=== PATIENT | female | born 1945 | race Caucasian/White ===

== ENCOUNTER 2018-12-20 13:02 | Inpatient (IN) | payer OTHER, MEDICAID ==
[~2018-12-20] VITALS: Ht 152.4 cm; Wt 72.0 kg
[2018-12-20 13:10] VITALS: BP 89/47
[2018-12-20] MEDS ORDERED: CALCIUM 500 +1 EAC5 PO (13:19)
[2018-12-20] MEDS ORDERED: LIPITOR40 MG PO (13:19)
[2018-12-20] MEDS ORDERED: ASPIR 8181 MG PO (13:19)
[2018-12-20] MEDS ORDERED: LANTUS SUBQ (13:20)
[2018-12-20] MEDS ORDERED: HUMALOG100 UNIT/1 SUBQ (13:21)
[2018-12-20] MEDS ORDERED: LISINOPRIL20 MG PO (13:21)
[2018-12-20] MEDS ORDERED: TOPROL XL25 MG PO (13:21)
[2018-12-20] MEDS ORDERED: COUMADIN 3 MG TA3 M1 PO (13:22)
[2018-12-20 13:27] LABS: BE -1.7 mmol/L (-2 to +3); PCO2 35.9 mmHg (35.0-45.0); PO2 78.2 mmHg (75.0-100.0); pH 7.412 (7.340-7.450)
[2018-12-20 14:31] LABS: URINE BILIRUBIN NEGATIVE (Negative); URINE BLOOD TRACE (Negative); URINE CLARITY CLEAR; URINE COLOR YELLOW; URINE GLUCOSE-RANDOM 3+ (Negative); URINE KETONES TRACE (Negative); URINE LEUKOCYTES-REFLEX NEGATIVE (Negative); URINE PROTEIN TRACE (Negative); URINE SPECIFIC GRAVITY >= 1.030 (1.005-1.030); URINE UROBILINOGEN 0.2 E.U./dl (0.2-1.0)
[2018-12-20 14:54] LABS: URINE NITRITE-REFLEX POSITIVE (Negative)
--- NOTE | 2018-12-20 14:57 | EKG ---
[place] [address] ELECTROCARDIOGRAM REPORT Name: SONIA JASON Room: [facility]#: [id number] Admission: 12/20/18 Attend Phys: Discharge: Date of : 49 Report #: [id number] THIS REPORT FOR: //name// [facility] ED Test Date: 2018-12-20 Test Time: 13:53:32 Pat Name: SONIA JASON Department: Room: Gender: F Epoxy Specialist: LAISHA : 1945 Requested By: Laura Hancock Order Number: [id number] MD: Justin Chi Measurements Intervals [place] Rate: 74 P: 23 MT: 146 QRS: 16 QRSD: 92 T: 40 QT: 424 QTc: 471 Interpretive Statements Sinus rhythm Low voltage, precordial leads No previous ECG available for comparison Electronically Signed On 12-20-2018 14:57:02 CDT by Justin Chi [email or web address] <ELECTRONICALLY SIGNED> By: Justin Chi MD, [facility] 12/20/18 1457 1353 1353 Justin Chi MD, FACC /EPI
[2018-12-20 14:58] LABS: BACTERIA-REFLEX 1-9 Few /HPF (None Seen); CRYSTALS None Seen /LPF (None Seen); FINE GRANULAR CASTS 0-3 Few /LPF (None Seen); HYALINE CASTS 0-3 Few /LPF (None Seen); SQUAMOUS 0-3 Few /LPF (0-3); URINE RBC 0-2 Rare /HPF (0-2); URINE WBC-REFLEX 6-15 Few /HPF (0-5)
[2018-12-20 15:17] LABS: HEMATOCRIT 29.4 % (37.0-47.0); HEMOGLOBIN 9.5 gm/dL (12.0-15.0); MCH 28.3 pg (26.0-34.0); MCHC 32.3 g/dL (28.0-37.0); MCV 87.4 fL (80.0-100.0); NUCLEATED RBCS 0 /100WBC; PLATELET COUNT* 265 thou/uL (150-400); RBC 3.37 mil/uL (4.20-5.00); RDW-CV 14.4 % (10.5-14.5); WBC 16.7 thou/uL (4.0-11.0)
[2018-12-20 15:28] LABS: ANION GAP 9 mmol/L (7-16); BUN 24 mg/dL (7-18); CHLORIDE 107 mmol/L (98-107); CO2 26 mmol/L (21-32); CREATININE 0.8 mg/dL (0.6-1.3); GLUCOSE 357 mg/dL (70-99); POTASSIUM 3.8 mmol/L (3.5-5.1); SODIUM 142 mmol/L (136-145)
[2018-12-20 15:29] LABS: INR 5.5
[2018-12-20 15:37] LABS: ABSOLUTE LYMPHOCYTES 1.7 thou/uL (0.8-5.3); ABSOLUTE MONOCYTES 0.2 thou/uL (0.0-1.2); ABSOLUTE NEUTROPHILS 14.9 thou/uL (1.6-8.1); PLATELET ESTIMATE ADEQUATE
[2018-12-20 15:38] LABS: ALBUMIN 2.3 g/dL (3.4-5.0); ALKALINE PHOSPHATASE 71 U/L (46-116); MAGNESIUM 1.2 mg/dL (1.8-2.4); NT-PRO BRAIN NAT PEPTIDE 253 pg/mL (<300); SGOT 29 U/L (15-37); SGPT 38 U/L (30-65); TOTAL BILIRUBIN 0.6 mg/dL (<0.1-1.0); TOTAL PROTEIN 4.7 g/dL (6.4-8.2); TROPONIN-I LEVEL <0.06 ng/mL (<0.06)
[2018-12-20 17:59] LABS: BE -13.2 mmol/L (-2 to +3); PCO2 26.7 mmHg (35.0-45.0)
[2018-12-20 18:03] LABS: PO2 > 488.8 mmHg (75.0-100.0); pH 7.272 (7.340-7.450)
[2018-12-20 18:30] VITALS: BP 106/56
[2018-12-20 18:53] VITALS: BP 123/74
[2018-12-20 23:35] LABS: HEMOGLOBIN 10.1 gm/dL (12.0-15.0); MCHC 33.6 g/dL (28.0-37.0); MCV 89.1 fL (80.0-100.0); MPV 9.4 fl. (7.2-11.1); RBC 3.37 mil/uL (4.20-5.00); RDW-CV 14.6 % (10.5-14.5); WBC 21.4 thou/uL (4.0-11.0)
[2018-12-21] VITALS (172 sets, daily range): BP systolic 66–196; BP diastolic 31–83
[2018-12-21 02:49] LABS: PROTIME 14.7 Seconds (9.20-11.50)
[2018-12-21 02:55] LABS: APTT 26.1 Seconds (25.0-31.3); INR 1.4
[2018-12-21 05:30] LABS: BE -3.3 mmol/L (-2 to +3); PCO2 21.6 mmHg (35.0-45.0); pH 7.545 (7.340-7.450)
[2018-12-21 05:58] LABS: CALCIUM 7.7 mg/dL (8.5-10.1); CREATININE 1.2 mg/dL (0.6-1.3); POTASSIUM 3.5 mmol/L (3.5-5.1)
[2018-12-21 07:38] LABS: BE -3.4 mmol/L (-2 to +3); PCO2 26.2 mmHg (35.0-45.0); pH 7.487 (7.340-7.450)
[2018-12-21 07:40] LABS: PO2 170.8 mmHg (75.0-100.0)
[2018-12-21 09:52] LABS: MCH 29.4 pg (26.0-34.0); MCHC 33.1 g/dL (28.0-37.0); MCV 88.9 fL (80.0-100.0); MPV 9.1 fl. (7.2-11.1); RBC 2.03 mil/uL (4.20-5.00); RDW-CV 14.4 % (10.5-14.5); WBC 15.3 thou/uL (4.0-11.0)
[2018-12-21 10:05] LABS: HEMATOCRIT 18.1 % (37.0-47.0)
[2018-12-21 10:34] LABS: INR 1.3; PROTIME 13.4 Seconds (9.20-11.50)
[2018-12-21 14:27] LABS: HEMATOCRIT 29.2 % (37.0-47.0)
[2018-12-21 14:28] LABS: HEMOGLOBIN 9.6 gm/dL (12.0-15.0)
[2018-12-21 16:24] LABS: HEMATOCRIT 28.3 % (37.0-47.0); HEMOGLOBIN 9.3 gm/dL (12.0-15.0)
[2018-12-21 16:35] LABS: MAGNESIUM 2.8 mg/dL (1.8-2.4)
[2018-12-21 16:37] LABS: POTASSIUM 4.5 mmol/L (3.5-5.1)
[2018-12-21 22:34] LABS: HEMATOCRIT 26.1 % (37.0-47.0); HEMOGLOBIN 8.8 gm/dL (12.0-15.0); MCH 30.1 pg (26.0-34.0); MCHC 33.9 g/dL (28.0-37.0); MCV 88.8 fL (80.0-100.0); MPV 9.5 fl. (7.2-11.1); RBC 2.93 mil/uL (4.20-5.00); RDW-CV 14.6 % (10.5-14.5)
[2018-12-22] VITALS (80 sets, daily range): BP systolic 90–133; BP diastolic 29–73
[2018-12-22 05:14] LABS: CALCIUM 7.8 mg/dL (8.5-10.1); CREATININE 1.1 mg/dL (0.6-1.3); MAGNESIUM 2.1 mg/dL (1.8-2.4); POTASSIUM 4.1 mmol/L (3.5-5.1)
[2018-12-22 05:18] LABS: INR 1.2; PROTIME 12.7 Seconds (9.20-11.50)
[2018-12-22 06:08] LABS: HEMOGLOBIN 7.1 gm/dL (12.0-15.0); MCH 29.8 pg (26.0-34.0); MCHC 33.6 g/dL (28.0-37.0); MCV 88.6 fL (80.0-100.0); MPV 8.8 fl. (7.2-11.1); RBC 2.37 mil/uL (4.20-5.00); RDW-CV 14.3 % (10.5-14.5); WBC 21.2 thou/uL (4.0-11.0)
[2018-12-22 08:14] LABS: BE -0.8 mmol/L (-2 to +3); PO2 70.6 mmHg (75.0-100.0)
[2018-12-22 11:00] LABS: TROPONIN-I LEVEL 0.13 ng/mL (<0.06)
[2018-12-22 13:02] LABS: URINE BILIRUBIN NEGATIVE (Negative); URINE BLOOD NEGATIVE (Negative); URINE CLARITY CLEAR; URINE COLOR YELLOW; URINE GLUCOSE-RANDOM TRACE (Negative); URINE KETONES NEGATIVE (Negative); URINE LEUKOCYTES NEGATIVE (Negative); URINE NITRITE NEGATIVE (Negative); URINE PROTEIN NEGATIVE (Negative); URINE SPECIFIC GRAVITY >= 1.030 (1.005-1.030); URINE UROBILINOGEN 0.2 E.U./dl (0.2-1.0)
[2018-12-22 13:15] LABS: HEMATOCRIT 28.8 % (37.0-47.0); HEMOGLOBIN 9.8 gm/dL (12.0-15.0)
[2018-12-22 13:22] LABS: HEMATOCRIT 28.8 % (37.0-47.0); MCH 30.1 pg (26.0-34.0); MCHC 33.9 g/dL (28.0-37.0); MCV 88.7 fL (80.0-100.0); MPV 8.9 fl. (7.2-11.1); RBC 3.25 mil/uL (4.20-5.00); RDW-CV 14.8 % (10.5-14.5); WBC 15.9 thou/uL (4.0-11.0)
[2018-12-22 13:24] LABS: HEMOGLOBIN 9.8 gm/dL (12.0-15.0)
[2018-12-22 18:04] LABS: HEMATOCRIT 28.2 % (37.0-47.0); HEMOGLOBIN 9.5 gm/dL (12.0-15.0)
--- NOTE | 2018-12-22 20:41 | CON ---
[address] [address] CONSULTATION Name: ERENSONIA J Room: [address] IN .R.#: [id number] Admission: 12/20/18 Attend Phys: Mirna Chowdary Discharge: Date of : 49 Report #: [id number] THIS REPORT FOR: //name// CC: CARLY physician/PCP Reginald Trinh CARDIOLOGY CONSULTATION HISTORY OF PRESENT ILLNESS: I was asked by Dr. Trinh to see this 73-year-old white female in cardiology consultation for evaluation and treatment of atrial fibrillation with a rapid ventricular response. This lady was admitted on 12/20/2018 with an acute GI bleed. She had a severe GI bleed and was hypotensive and actually had syncope with it. Apparently, she has a bleeding duodenal ulcer. She was intubated in the ER the day of the admission to protect her airway apparently. She does have a history of COPD also. She does, in fact, have a past history of atrial fibrillation as well. She was in sinus rhythm until this morning. Of note, is that they have had difficulty managing this lady's blood pressure. She has remained hypotensive since her admission. She has required Levophed. She also has required DuoNeb that she has been getting every 4 hours. This morning, she became hypotensive again. Last night, her hemoglobin was 8.8 at 10:00 last night. This morning with this event, her hemoglobin did drop to 7.1. The presumption is that she has bled again. She went into atrial fibrillation with a rapid ventricular response earlier this morning, initially it was thought to be paroxysmal supraventricular tachycardia, because it was extremely rapid and fairly regular, although on close examination, the rhythm is in fact not completely regular. Her initial heart rate was 190. She was given adenosine and metoprolol and the heart rate slowed and has remained a bit slower, but she was running up to 150 at times and it became clear it was atrial fibrillation. She is on 12 mcg of Levophed and cannot get diltiazem or a beta oksana for this rhythm, so she has gotten a couple of doses of digoxin. If she fails to respond with a lower heart rate with digoxin, then we will have to give her amiodarone. She was given a bolus of fluids. She is less hypotensive now, she is going to get blood. She is currently stable, but remains critically ill. PAST MEDICAL HISTORY: Also includes history of CVA in 2005, I believe it was on the right side of her head. She has history of essential hypertension, diabetes mellitus and hypercholesterolemia and was on medication for those. She has insulin-dependent diabetes mellitus. She cannot give a history, she is intubated and is sedated and on ventilator. PAST MEDICAL HISTORY: As described above. ALLERGIES: She is allergic to METFORMIN AND PENICILLIN. REVIEW OF SYSTEMS: [place] [address] CONSULTATION Name: SONIA JASON Room: [address] IN [facility]#: [id number] Admission: 12/20/18 Attend Phys: Mirna Chowdary Discharge: Date of : 49 Report #: [id number] SOCIAL HISTORY: She cannot give social history or family history. Apparently, she does not smoke or drink or use illegal drugs. PHYSICAL EXAMINATION: GENERAL: She presents as a well-developed, well-nourished white female in no acute distress. She is intubated, sedated and on the ventilator. She is unresponsive. VITAL SIGNS: Her pulse is currently 118, her systolic pressure is 100, respirations are 16, and she is afebrile. Her most recent temperature was 98.1. HEENT: Her head is atraumatic. Eyes clear. NECK: Supple. There is no jugular venous distention or hepatojugular reflux. Thyroid is not enlarged. There is no adenopathy. SKIN: Warm and dry. Mucous membranes are moist. LUNGS: Clear to auscultation and percussion. HEART: Revealed normal first and second heart sound. There is no S4, no S3, no murmurs, rubs, thrills, heaves. The rhythm is irregularly irregular, rate is approximately 120. PMI is not displaced. ABDOMEN: Soft, flat, nontender, no palpable masses, no organomegaly. EXTREMITIES: Reveal no cyanosis, clubbing or edema. NEUROLOGIC: The patient was unresponsive and did not move her extremities. She is intubated and sedated. DIAGNOSTIC STUDIES: Her most recent EKG from this morning at 5:20 a.m. shows atrial fibrillation. There is a possible old anteroseptal infarct. Her heart rate was 123 at that time. Chest x-ray from yesterday showed clear lungs. I do not think she has had one yet today. On yesterday's x-ray, the cardiac silhouette was normal. ET tube was in normal position. IMPRESSION: 1. Atrial fibrillation with a rapid ventricular response. 2. Hypovolemic shock. 3. Gastrointestinal bleed. 4. Chronic obstructive pulmonary disease with acute respiratory failure. 5. Anemia. 6. History of essential hypertension. 7. Insulin-dependent diabetes mellitus. 8. Hypercholesterolemia. 9. History of cerebrovascular accident. RECOMMENDATION: She has already gotten a couple of doses of digoxin. If her heart rate does not begin to slow further, I would start her on amiodarone to slow her and hopefully convert her back to sinus rhythm. She should not be anticoagulated. I would transfuse her. I would notify GI that she is probably having a GI bleed. She has already gotten a bolus of fluids. She may require more fluids. I would discontinue DuoNeb and switch her to Xopenex, as it is less arrhythmogenic. If her blood pressure comes up, I would taper her off the [address] [place] [address] CONSULTATION Name: SONIA JASON Room: [address] ADM IN ..#: [id number] Admission: 12/20/18 Attend Phys: Mirna Chowdary Discharge: Date of : 47 Report #: [id number] Levophed, as it is also arrhythmogenic. I would consider Amos-Synephrine in place of it, if she continues needing pressor support. Amos-Synephrine is not arrhythmogenic. Thank you very much for asking me to the patient. If any questions, please feel free to contact me. <ELECTRONICALLY SIGNED> By: Justin Chi MD, [facility] 12/22/18 2041 0833 [id number]. Vernon Brito MD, FACC /nt
[2018-12-23] VITALS (76 sets, daily range): BP systolic 92–148; BP diastolic 30–63
[2018-12-23 03:56] LABS: HEMOGLOBIN 8.9 gm/dL (12.0-15.0); MCH 29.4 pg (26.0-34.0); MCHC 33.1 g/dL (28.0-37.0); MCV 88.7 fL (80.0-100.0); MPV 8.9 fl. (7.2-11.1); RBC 3.04 mil/uL (4.20-5.00); RDW-CV 14.9 % (10.5-14.5); WBC 15.3 thou/uL (4.0-11.0)
[2018-12-23 04:04] LABS: INR 1.1
--- NOTE | 2018-12-23 09:53 | CON ---
[address] [address] CONSULTATION Name: SONIA JASON Room: [address] ADM IN M.R.#: [id number] Admission: 12/20/18 Attend Phys: Mirna Chowdary Discharge: Date of : 49 Report #: [id number] THIS REPORT FOR: //name// CC: CARLY physician/PCP Reginald Trinh REASON FOR CONSULTATION: Respiratory failure, ventilator management. HISTORY OF PRESENT ILLNESS: Please note the patient is intubated, on sedation during my visit, did not participate in the history; discussed with the nursing staff and reviewed medical record. She is a 73-year-old female patient, who was brought in by EMS. Apparently, she had episodes of vomiting and loss of consciousness while she was in a gas station. EMS reported that she was unconscious, although she gained consciousness en route to the emergency room. Apparently, she did not recall any knowledge about what happened. She has a C-collar in place. She denied abdominal pain, fever, or rash to the admitting physician; however, at one point, she was intubated for airway protection. She had a central line placed and pneumothorax was found. She also ended up with a chest tube placement. She still has gastric tube with some bloody secretions. During my visit, she was on Levophed, although they were going down on it. She was on 2 mcg of Levophed compared to 5 overnight. She is on 6 mg Versed. ALLERGIES: Per the record, PENICILLIN AND METFORMIN. PAST MEDICAL HISTORY: Includes atrial fibrillation, diabetes mellitus, stroke, and hysterectomy. PAST SURGICAL HISTORY: Includes hysterectomy as above. HOME MEDICATIONS: Aspirin, calcium, metoprolol, Coumadin. FAMILY HISTORY: Not obtainable. REVIEW OF SYSTEMS: Not obtainable due to the patient's condition. PHYSICAL EXAMINATION: GENERAL: She is intubated, on sedation, no distress, chest tube in place, ET tube in place. HEENT: Oral cavity, moist mucous membrane; head, normocephalic, atraumatic; slightly pale; pupils reactive to light; external ears look normal; nasal cavity, patent passages. NECK: Full range of movement, nontender. No masses felt, no rebound, no rigidity. CHEST: Air movement heard bilaterally; no crackles, no wheezes; chest tube on the left side with very rare occasional leak. HEART: S1 and S2, no murmur. ABDOMEN: Benign, soft, lax, nontender, [place] [address] CONSULTATION Name: SONIA JASON Room: [address]#: [id number] Admission: 12/20/18 Attend Phys: Mirna Chowdary Discharge: Date of : 49 Report #: [id number] EXTREMITIES: Lower extremity, no edema noted. I did not take the sedation off. SKIN: No rash. LYMPHATICS: No palpable lymph node. NEUROLOGIC: Sedated. LABORATORY DATA: White blood count 16.7, hemoglobin 9.5, and platelets of 265. Her INR was 5.5; however, post hospitalization today is 1.4. ABGs, she had multiple sets of ABGs reviewed. The last ABG this morning, 7.48//170 and that was on 550 of tidal volume, 50% FiO2, and rate of 16. Since then, the volume was adjusted and FiO2 was adjusted. Her creatinine is 1.2, BUN is 27, bicarbonate 20, potassium 3.5, and sodium 144. She had multiple imaging that was reviewed. Initial chest x-ray did not show pneumothorax, but after intubation, the chest x-ray showed the pneumothorax. The chest x-ray this morning, left-sided chest tube was noted and ET tube in good position with clear lungs. IMPRESSION: 1. Acute respiratory failure. 2. Gastrointestinal bleed. 3. Syncopal episode. 4. Pneumothorax, status post chest tube placement. 5. Supratherapeutic INR, on anticoagulation, likely due to atrial fibrillation. 6. Atrial fibrillation. PLAN: I agree with changing sedation to propofol if her blood pressure can tolerate, wean pressor down as tolerated, monitor fluid status, and avoid fluid overload. I would keep the chest tube to -30 suction; likely, we will keep the chest tube until after extubation. Monitor hemoglobin and transfuse as needed. My understanding is she received blood transfusion and fresh frozen plasma, Gastroenterology to evaluate. I will continue the current ventilator setting as suggested above. If cleared by Gastroenterology, we will start weaning trials hopefully tomorrow depending on the progress of the gastrointestinal workup and her hemodynamic status. We will follow up on chest x-ray and arterial blood gases. Critical care time 40 minutes. <ELECTRONICALLY SIGNED> By: Cheryl Ribeiro MD 12/23/18 0953 0815 0924Cheryl Ribeiro MD /georgiana
[2018-12-23 11:21] LABS: BE 0.1 mmol/L (-2 to +3); PCO2 37.6 mmHg (35.0-45.0); pH 7.429 (7.340-7.450)
--- NOTE | 2018-12-23 13:47 | EKG ---
[place] [address] ELECTROCARDIOGRAM REPORT Name: SONIA JASON Room: [address] ADM IN M.R.#: [id number] Admission: 12/20/18 Attend Phys: Mirna Chowdary Discharge: Date of : 49 Report #: [id number] THIS REPORT FOR: //name// [facility] Test Date: 2018-12-21 Test Time: 04:43:05 Pat Name: SONIA JASON Department: Room: [address] Gender: F Physical Therapy Technician: CAN : 1945 Requested By: Reginald Trinh Order Number: [id number] Derrick MD: Justin Chi Measurements Intervals [place] Rate: 110 P: -7 WI: 147 QRS: 23 QRSD: 83 T: 239 QT: 343 QTc: 465 Interpretive Statements Sinus tachycardia Low voltage, precordial leads Nonspecific repol abnormality, diffuse leads Compared to ECG 12/20/2018 13:53:32 Early repolarization now present Sinus rhythm no longer present Electronically Signed On 12-23-2018 13:46:59 CDT by Justin Chi [email or web address] <ELECTRONICALLY SIGNED> By: Justin Chi MD, FAC 12/23/18 1346 0443 0443 Justin Chi MD, [facility] /EPI
[2018-12-23 13:52] LABS: HEMATOCRIT 24.2 % (37.0-47.0); HEMOGLOBIN 8.4 gm/dL (12.0-15.0)
--- NOTE | 2018-12-23 13:58 | EKG ---
[place] [address] ELECTROCARDIOGRAM REPORT Name: SONIA JASON Room: [address] ADM IN M.R.#: [id number] Admission: 12/20/18 Attend Phys: Mirna Chowdary Discharge: Date of : 49 Report #: [id number] THIS REPORT FOR: //name// [facility] Test Date: 2018-12-22 Test Time: 05:02:41 Pat Name: SONIA JASON Department: Room: [address] Gender: F Administrative Support Specialist: CAN : 1945 Requested By: Reginald Trinh Order Number: [id number] Derrick MD: Justin Chi Measurements Intervals [place] Rate: 190 P: 0 CT: QRS: 0 QRSD: 71 T: 182 QT: 245 QTc: 436 Interpretive Statements Supraventricular tachycardia Low voltage, extremity and precordial leads Repolarization abnormality, prob rate related Electronically Signed On 12-23-2018 13:57:57 CDT by Justin Chi [email or web address] <ELECTRONICALLY SIGNED> By: Justin Chi MD, [facility] 12/23/18 1357 D: [address] 1 Justin Chi MD, FACC /EPI
--- NOTE | 2018-12-23 13:59 | EKG ---
[place] [address] ELECTROCARDIOGRAM REPORT Name: SONIA JASON Room: [address] ADM IN M.R.#: [id number] Admission: 12/20/18 Attend Phys: Mirna Chowdary Discharge: Date of : 49 Report #: [id number] THIS REPORT FOR: //name// [facility] Test Date: 2018-12-22 Test Time: 05:20:49 Pat Name: SONIA JASON Department: Room: [address] Gender: F [employer] Reading Teacher: CAN : 1945 Requested By: Vinicius Brito Order Number: [id number] Derrick MD: Justin Chi Measurements Intervals [place] Rate: 123 P: [place]: QRS: 8 QRSD: 80 T: 113 QT: 318 QTc: 455 Interpretive Statements Atrial fibrillation Anteroseptal infarct, age indeterminate Electronically Signed On 12-23-2018 13:59:23 CDT by Justin Chi [email or web address] <ELECTRONICALLY SIGNED> By: Justin Chi MD, [facility] 12/23/18 1359 0520 0520 Justin Chi MD, FACC /EPI
--- NOTE | 2018-12-23 14:30 | EKG ---
[place] [address] ELECTROCARDIOGRAM REPORT Name: SONIA JASON Room: [address] ADM IN M.R.#: [id number] Admission: 12/20/18 Attend Phys: Mirna Chowdary Discharge: Date of : 49 Report #: [id number] THIS REPORT FOR: //name// [facility] Test Date: 2018-12-22 Test Time: 09:05:26 Pat Name: SONIA JASON Department: Room: [address] Gender: F Applications Developer: [facility] : 1945 Requested By: Dinora Aponte Order Number: [id number] Derrick MD: Justin Chi Measurements Intervals [place] Rate: 121 P: 57 [place]: 144 QRS: 2 QRSD: 73 T: 211 QT: 291 QTc: 413 Interpretive Statements Sinus tachycardia Low voltage, extremity and precordial leads septal infarct, old Borderline repolarization abnormality Electronically Signed On 12-23-2018 14:30:18 CDT by Justin Chi [email or web address] <ELECTRONICALLY SIGNED> By: Justin Chi MD, [facility] 12/23/18 1430 4 4 Justin Chi MD, FACC /EPI
--- NOTE | 2018-12-23 15:38 | CON ---
[address] [address] CONSULTATION Name: ERENSONIA J Room: [address] ADM IN M.R.#: [id number] Admission: 12/20/18 Attend Phys: Mirna Chowdary Discharge: Date of : 49 Report #: [id number] THIS REPORT FOR: //name// CC: CARLY physician/PCP Reginald Trinh DATE OF SERVICE: 12/21/2018 REASON FOR CONSULT: Gastrointestinal bleed. HISTORY OF PRESENT ILLNESS: This is a 73-year-old female who was admitted to hospital last night with hematemesis. The patient apparently was found unconscious at gas station and was brought to the hospital by EMS. Upon hospitalization, the patient was alert, but reported that she was tired. Her hemoglobin was in range of 8, but she was transfused since she was vomiting a lot of blood. Since then, the patient has been intubated and is on pressors. She is maxed out on Levophed of 30. She still is extremely hypotensive and tachycardic with heart rate of 130s. She also has leukocytosis with WBC in range of mid 20s. She initially was on propofol, but she has been off of propofol and is not responsive. She has a NG tube in place, which has some dark blood in it. The patient also is on Coumadin and she was on hypercoagulable state with INR of 5.5 on admission. Since her ER visit, we had ordered to reverse INR with FFP and her INR this morning is 1.3. Post-transfusion, her hemoglobin went up to 10, but this morning had dropped to 6. We also had started her on a Protonix drip since admission. PAST MEDICAL HISTORY: Significant for history of hyperlipidemia, diabetes, hypertension, atrial fibrillation, history of cerebrovascular accident in 2005 and chronic anticoagulation therapy. ALLERGIES: Significant to METFORMIN AND PENICILLIN. SOCIAL HISTORY: Unknown as the patient is nonresponsive. FAMILY HISTORY: Unknown as well. PHYSICAL EXAMINATION: GENERAL: Reveals a 73-year-old female with acute gastrointestinal bleeds, who is intubated, off of sedation, but nonresponsive; tachycardic and hypotensive, on Levophed. VITAL SIGNS: Include blood pressure of 89/41, respirations 21, pulse 128 and temperature is 100.2. LUNGS: Bilateral breath sounds are heard, note the patient is intubated. CARDIOVASCULAR: [place]achycard[place] [address] CONSULTATION Name: SONIA JASON Shruthi Room: [address] IN [facility]#: [id number] Admission: 12/20/18 Attend Phys: Mirna Chowdary Discharge: Date of : 49 Report #: [id number] ABDOMEN: Soft. Bowel sounds are present. There is no rebound or guarding. NEUROLOGIC: The patient is off sedation, but nonresponsive. LABORATORY DATA: Reveal sodium of 144, potassium 3.5, BUN is 27, creatinine 1.2, glucose is 419, AST is 29, ALT 31, alkaline phosphatase 71 and calcium is 7.7. Albumin is 2.3. Lactic acid is 5.2 with troponin of 0.07. INR is 1.3. WBC is 15.3 with hemoglobin of 6.0 and platelets of 171. IMAGING: CT of abdomen and pelvis was obtained on admission. There is a large left pneumothorax noted on presentation and has been addressed with placing a chest tube. There was a large amount of mixed density fluid and some gas in the stomach, which may be consistent with upper gastrointestinal bleed. There was also cholelithiasis and small amount of free fluid in the pelvis. ASSESSMENT AND PLAN: The patient with multiple medical problems who presents with acute gastrointestinal bleed and shock, who is on maximum dose of pressors and intubated. Since her hemoglobin dropped from 10 to 6, we will go ahead and perform upper endoscopy. We continue to monitor H and H and keep hemoglobin between 7 and 8. Meanwhile, we will continue Protonix drip and make further recommendation based on upper endoscopic finding. <ELECTRONICALLY SIGNED> By: Bossman Holloway MD 12/23/18 1538 1203 1840Bossman Holloway MD /nt
--- NOTE | 2018-12-23 16:38 | 2DMMODE ---
[place] [address] 2 D/M-MODE ECHOCARDIOGRAM Name: JASONSONIA J Room: 003-P ADM IN [facility]#: [id number] Admission: 12/20/18 Attend Phys: Reginald Trinh Discharge: Date of : 49 Date of Service: 12/23/18 1638 Report #: [id number] THIS REPORT FOR: //name// APPROVED REPORT Study performed: 12/23/2018 14:17:14 EXAM: Comprehensive 2D, Doppler, and color-flow Echocardiogram Patient Location: In-Patient Room #: 003 Status: routine BSA: 1.83 HR: 77 bpm BP: 112/37 mmHg Rhythm: NSR Other Information Study Quality: Good Indications Atrial Fibrillation 2D Dimensions IVSd: 9.43 (7-11mm) LVOT Diam: 19.40 (18-24mm) LVDd: 38.03 mm PWd: 9.92 (7-11mm) Ascending Ao: 29.78 (22-36mm) LVDs: 20.03 (25-40mm) Aortic Root: 29.86 mm Volumes Left Atrial Volume (Systole) LA ESV Index: 20.00 mL/m2 Aortic Valve AoV Peak Gadiel.: 1.67 m/s AO Peak Gr.: 11.13 mmHg LVOT Max P.36 mmHg AO Mean Gr.: 5.89 mmHg LVOT Mean P.66 mmHg LVOT Max V: 1.16 m/s AO V2 VTI: 28.51 cm LVOT Mean V: 0.75 m/s LYNN (VTI): 2.61 cm2 LVOT V1 VTI: 25.21 cm Mitral Valve E/A Ratio: 1.19 MV Decel. Time: 211.34 ms MV E Max Gadiel.: 0.88 m/[place] [address] 2 D/M-MODE ECHOCARDIOGRAM Name: SONIA JASON Room: [address] IN ..#: [id number] Admission: 12/20/18 Attend Phys: Reginald Trinh Discharge: Date of : 49 Date of Service: 12/23/18 1638 Report #: [id number] MV PHT: 61.29 ms MVA (PHT): 3.59 cm2 TDI E/Lateral E': 8.80 E/Medial E': 11.00 Medial E' Gadiel.: 0.08 m/s Lateral E' Gadiel.: 0.10 m/s Pulmonary Valve PV Peak Gadiel.: 1.09 m/s PV Peak Gr.: 4.76 mmHg Left Ventricle The left ventricle is normal size. There is normal LV segmental wall motion. There is normal left ventricular wall thickness. Left ventricular systolic function is normal. The left ventricular ejection fraction is within the normal range. LVEF is 60-65%. The left ventricular diastolic function is normal. Right Ventricle The right ventricle is normal size. The right ventricular systolic function is normal. Atria The left atrium size is normal. The right atrium size is normal. Aortic Valve Aortic valve leaflets are mildly thickened. No aortic regurgitation is present. There is no aortic valvular stenosis. Mitral Valve There is mitral annular calcification. Trace mitral regurgitation. No evidence of mitral valve stenosis. Tricuspid Valve The tricuspid valve is normal in structure. Trace tricuspid regurgitation. Unable to assess PA pressure. Pulmonic Valve The pulmonary valve is normal in structure. There is no pulmonic valvular regurgitation. Great Vessels The aortic root is normal in size. [place] [address] 2 D/M-MODE ECHOCARDIOGRAM Name: SONIA JASON Room: [address] IN [facility]#: [id number] Admission: 12/20/18 Attend Phys: Reginald Trinh Discharge: Date of : 49 Date of Service: 12/23/18 1638 Report #: [id number] Pericardium There is no pericardial effusion. <Conclusion> LVEF is 60-65%. Aortic valve leaflets are mildly thickened. <ELECTRONICALLY SIGNED> By: Justin Chi MD, [facility] 12/23/18 1638 1638 37 Justin Chi MD, [facility] /INF
--- NOTE | 2018-12-23 16:54 | EKG ---
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
[2018-12-24] VITALS (38 sets, daily range): BP systolic 85–142; BP diastolic 31–55
[2018-12-24 04:56] LABS: HEMATOCRIT 24.8 % (37.0-47.0); HEMOGLOBIN 8.5 gm/dL (12.0-15.0); MCH 30.3 pg (26.0-34.0); MCHC 34.4 g/dL (28.0-37.0); MPV 9.7 fl. (7.2-11.1); RBC 2.81 mil/uL (4.20-5.00); RDW-CV 14.6 % (10.5-14.5); WBC 8.4 thou/uL (4.0-11.0)
[2018-12-24 05:05] LABS: CALCIUM 7.8 mg/dL (8.5-10.1); CREATININE 0.7 mg/dL (0.6-1.3); POTASSIUM 3.4 mmol/L (3.5-5.1)
[2018-12-24 05:07] LABS: PROTIME 10.5 Seconds (9.20-11.50)
--- NOTE | 2018-12-24 11:36 | EKG ---
[place] [address] ELECTROCARDIOGRAM REPORT Name: SONIA JASON Room: [address] ADM IN M.R.#: [id number] Admission: 12/20/18 Attend Phys: Mirna Chowdary Discharge: Date of : 49 Report #: [id number] THIS REPORT FOR: //name// [facility] Test Date: 2018-12-24 Test Time: 08:32:05 Pat Name: SONIA JASON Department: Room: [address] Gender: F Lift Operator: : 1945 Requested By: Vinicius Brito Order Number: [id number] Reading MD: Toni Aiken Measurements Intervals [place] Rate: 82 P: 21 CT: 154 QRS: 35 QRSD: 100 T: 14 QT: 392 QTc: 458 Interpretive Statements Sinus rhythm Low voltage, precordial leads Baseline wander in lead(s) II,III,aVF Compared to ECG 12/23/2018 09:13:03 Prolonged QT interval no longer present Electronically Signed On 12-24-2018 11:36:29 CDT by Toni Aiken [email or web address] <ELECTRONICALLY SIGNED> By: Toni Aiken MD, FAC 12/24/18 1136 [id number] Toni Aiken MD, [facility] /EPI
[2018-12-25] VITALS (30 sets, daily range): BP systolic 91–131; BP diastolic 23–57
[2018-12-25 09:05] LABS: HEMATOCRIT 25.4 % (37.0-47.0); HEMOGLOBIN 8.9 gm/dL (12.0-15.0); MCH 31.3 pg (26.0-34.0); MCV 89.4 fL (80.0-100.0); MPV 9.2 fl. (7.2-11.1); NUCLEATED RBCS 0 /100WBC; PLATELET COUNT* 77 thou/uL (150-400); RBC 2.84 mil/uL (4.20-5.00); RDW-CV 14.3 % (10.5-14.5)
[2018-12-25 09:16] LABS: CALCIUM 8.1 mg/dL (8.5-10.1); CREATININE 0.5 mg/dL (0.6-1.3); POTASSIUM 3.6 mmol/L (3.5-5.1); TOTAL BILIRUBIN 0.7 mg/dL (<0.1-1.0); TOTAL PROTEIN 4.2 g/dL (6.4-8.2)
[2018-12-25 09:27] LABS: ABSOLUTE EOSINOPHILS 0.1 thou/uL (0.0-0.7); ABSOLUTE LYMPHOCYTES 1.6 thou/uL (0.8-5.3); ABSOLUTE MONOCYTES 0.4 thou/uL (0.0-1.2); ABSOLUTE NEUTROPHILS 5.9 thou/uL (1.6-8.1); METAMYELOCYTES 1 %; PLATELET ESTIMATE DECREASED
[2018-12-25 09:28] LABS: HYPOCHROMASIA 1+; POLYCHROMASIA 1+
--- NOTE | 2018-12-25 11:08 | EKG ---
[place] [address] ELECTROCARDIOGRAM REPORT Name: SONIA JASON Room: [address] ADM IN M.R.#: [id number] Admission: 12/20/18 Attend Phys: Mirna Chowdary Discharge: Date of : 49 Report #: [id number] THIS REPORT FOR: //name// 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
[2018-12-26] VITALS: BP 114/45
[2018-12-26 04:03] VITALS: BP 113/47
[2018-12-26 05:47] LABS: PROTIME 10.5 Seconds (9.20-11.50)
--- NOTE | 2018-12-26 11:24 | EKG ---
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
[2018-12-26 11:57] VITALS: BP 113/49
[2018-12-26 15:46] VITALS: BP 118/50
[2018-12-26 20:10] VITALS: BP 129/46
[2018-12-27] VITALS: BP 102/40; BP 103/34
[2018-12-27 04:00] VITALS: BP 104/42
[2018-12-27 12:44] LABS: HEMATOCRIT 27.2 % (37.0-47.0); HEMOGLOBIN 9.2 gm/dL (12.0-15.0)
[2018-12-27 12:46] VITALS: BP 104/37
[2018-12-27 16:06] VITALS: BP 123/52
[2018-12-27 19:05] LABS: HEMATOCRIT 29.2 % (37.0-47.0); HEMOGLOBIN 9.9 gm/dL (12.0-15.0)
[2018-12-27 20:00] VITALS: BP 116/45
[2018-12-28] VITALS: BP 98/40
[2018-12-28 04:00] VITALS: BP 112/42
[2018-12-28 08:00] VITALS: BP 113/48
[2018-12-28 12:00] VITALS: BP 111/40
[2018-12-28 16:00] VITALS: BP 95/32
[2018-12-28 20:00] VITALS: BP 108/41
[2018-12-29] VITALS (7 sets, daily range): BP systolic 91–116; BP diastolic 32–55
[2018-12-30] VITALS: BP 101/39
[2018-12-30 04:30] VITALS: BP 101/42
[2018-12-30 08:00] VITALS: BP 114/42
[2018-12-30 11:00] VITALS: BP 101/35
[2018-12-30 15:00] VITALS: BP 124/48
[2018-12-30 20:00] VITALS: BP 113/43
[2018-12-31] VITALS: BP 113/48
[2018-12-31 04:00] VITALS: BP 110/44
[2018-12-31 08:00] VITALS: BP 142/45
[2018-12-31 11:00] VITALS: BP 142/45
[2018-12-31] MEDS ORDERED: PROTONIX40 M1 PO (11:07)
[2018-12-31] MEDS ORDERED: CARAFATE 1 GM TA1 G1 PO (11:21)
== END 2018-12-31 14:00 | DRG 208 ==
LOC: M.ERS 13:02 → M.ICU 16:11 → M.TBA-ER 16:11 → M.2W 16:11 → M.ICU 17:42 → M.2W 12-25 22:19
PROVIDERS: Internal Medicine; Internal Medicine Critical Care Medicine; Internal Medicine Gastroenterology; Personal Emergency Response Attendant; ADMIT Internal Medicine
PROC: 0BH17EZ Insertion of Endotracheal Airway into Trachea, Via Natural or Artificial Opening (ICD-10-PCS; 2018-12-20)
PROC: 02HV33Z Insertion of Infusion Device into Superior Vena Cava, Percutaneous Approach (ICD-10-PCS; 2018-12-20)
PROC: 30233N1 Transfusion of Nonautologous Red Blood Cells into Peripheral Vein, Percutaneous Approach (ICD-10-PCS; 2018-12-20)
PROC: 5A1945Z Respiratory Ventilation, 24-96 Consecutive Hours (ICD-10-PCS; 2018-12-20)
PROC: 30233K1 Transfusion of Nonautologous Frozen Plasma into Peripheral Vein, Percutaneous Approach (ICD-10-PCS; 2018-12-20)
PROC: 0W9B30Z Drainage of Left Pleural Cavity with Drainage Device, Percutaneous Approach (ICD-10-PCS; 2018-12-21)
PROC: 0W3P8ZZ Control Bleeding in Gastrointestinal Tract, Via Natural or Artificial Opening Endoscopic (ICD-10-PCS; 2018-12-21)
PROC: 0DJ08ZZ Inspection of Upper Intestinal Tract, Via Natural or Artificial Opening Endoscopic (ICD-10-PCS; principal; 2018-12-23)
DX: J93.9 Pneumothorax, unspecified (principal); J69.0 Pneumonitis due to inhalation of food and vomit; K27.4 Chronic or unspecified peptic ulcer, site unspecified, with hemorrhage; J96.00 Acute respiratory failure, unspecified whether with hypoxia or hypercapnia; R57.8 Other shock; R57.1 Hypovolemic shock; I85.01 Esophageal varices with bleeding; D68.59 Other primary thrombophilia; N39.0 Urinary tract infection, site not specified; D62 Acute posthemorrhagic anemia; J44.9 Chronic obstructive pulmonary disease, unspecified; E78.00 Pure hypercholesterolemia, unspecified; E11.65 Type 2 diabetes mellitus with hyperglycemia; E11.22 Type 2 diabetes mellitus with diabetic chronic kidney disease; N18.3 Chronic kidney disease, stage 3 (moderate); D69.6 Thrombocytopenia, unspecified; I48.0 Paroxysmal atrial fibrillation; Z86.73 Personal history of transient ischemic attack (TIA), and cerebral infarction without residual deficits; Z90.710 Acquired absence of both cervix and uterus; Z79.01 Long term (current) use of anticoagulants; Z79.82 Long term (current) use of aspirin; Z79.899 Other long term (current) drug therapy; Z88.8 Allergy status to other drugs, medicaments and biological substances; Z88.0 Allergy status to penicillin; Z79.4 Long term (current) use of insulin

== ENCOUNTER → 2019-02-20 | Outpatient (CLI) | payer OTHER, MEDICAID ==
[~2019-02-20] MED LIST: ASPIR 8181 MG PO; CALCIUM 500 +1 EAC5 PO; CARAFATE 1 GM TA1 G1 PO; COUMADIN 3 MG TA3 M1 PO; HUMALOG100 UNIT/1 SUBQ; LANTUS SUBQ; LIPITOR40 MG PO; LISINOPRIL20 MG PO; PROTONIX40 M1 PO; TOPROL XL25 MG PO
[2019-02-20 10:07] LABS: PROTIME 19.8 Seconds (9.20-11.50)
== END ==
LOC: M.LAB 04:39
PROVIDERS: Anesthesiology
DX: Z51.81 Encounter for therapeutic drug level monitoring (principal); E11.9 Type 2 diabetes mellitus without complications